=== PATIENT | male | born 1965 | race Caucasian/White ===

== ENCOUNTER 2018-09-14 06:00 | Observation (INO) | payer BC ==
[2018-09-14] MEDS ORDERED: NA CHLORIDE 0.9% 1,000 ML ONE (06:30)
[2018-09-14] MEDS ORDERED: ASPIRIN EC 81 MG TAB PO ONE (06:30)
--- NOTE | 2018-09-14 07:05 | EDPHYS ---
Physician Documentation [facility] Name: Noe Carvajal Jr Age: 52 yrs Sex: Male : 1965 Arrival Date: 09/14/2018 Time: 06:00 Bed 4 Private MD: ED Physician Neil Robert HPI: 09/14 06:56 This 52 yrs old Male presents to ER via Wheelchair with complaints of Chest toño Pain. 06:56 The patient or guardian reports chest pain that is located primarily in the substernal toño area. Onset: just prior to arrival, this morning. The pain radiates to Associated signs and symptoms: The patient has no apparent associated signs or symptoms. The chest pain is described as a pressure. Duration: The patient or guardian reports a single episode, that is still ongoing. Modifying factors: The symptoms are alleviated by nothing. the symptoms are aggravated by nothing. Severity of pain: At its worst the pain was moderate in the emergency department the pain is unchanged. The patient has not experienced similar symptoms in the past. Historical: - Allergies: 06:15 No Known Allergies; rr5 - Home Meds: 06:15 blood pressure meds (unaware of name) [Active]; Diltiazem Oral [Active]; olmazart rr5 [Active]; - PMHx: 06:15 Hypertension; Kidney stones; rr5 - PSHx: 06:15 Knee surgery; rr5 - Immunization history:: Adult Immunizations unknown. - Social history:: Smoking status: Patient/guardian denies using tobacco. - Ebola Screening: : Patient negative for fever greater than or equal to 101.5 degrees Fahrenheit, and additional compatible Ebola Virus Disease symptoms Patient denies exposure to infectious person Patient denies travel to an Ebola-affected area in the 21 days before illness onset No symptoms or risks identified at this time. - Family history:: not pertinent. ROS: 06:56 Constitutional: Negative for fever, chills, and weight loss, Eyes: Negative for injury, toño pain, redness, and discharge, ENT: Negative for injury, pain, and discharge, Neck: Negative for injury, pain, and swelling, Respiratory: Negative for shortness of breath, cough, wheezing, and pleuritic chest pain, Abdomen/GI: Negative for abdominal pain, nausea, vomiting, diarrhea, and constipation, Back: Negative for injury and pain, : Negative for injury, bleeding, discharge, and swelling, MS/Extremity: Negative for injury and deformity, Skin: Negative for injury, rash, and discoloration, Neuro: Negative for headache, weakness, numbness, tingling, and seizure, Psych: Negative for depression, anxiety, suicide ideation, homicidal ideation, and hallucinations, Allergy/Immunology: Negative for hives, rash, and allergies, Endocrine: Negative for neck swelling, polydipsia, polyuria, polyphagia, and marked weight changes, Hematologic/Lymphatic: Negative for swollen nodes, abnormal bleeding, and unusual bruising. 06:56 Cardiovascular: Positive for chest pain, of the chest. Exam: 06:56 Constitutional: This is a well developed, well nourished patient who is awake, alert, toño and in no acute distress. Head/Face: Normocephalic, atraumatic. Eyes: Pupils equal round and reactive to light, extra-ocular motions intact. Lids and lashes normal. Conjunctiva and sclera are non-icteric and not injected. Cornea within normal limits. Periorbital areas with no swelling, redness, or edema. ENT: Nares patent. No nasal discharge, no septal abnormalities noted. Tympanic membranes are normal and external auditory canals are clear. Oropharynx with no redness, swelling, or masses, exudates, or evidence of obstruction, uvula midline. Mucous membranes moist. Neck: Trachea midline, no thyromegaly or masses palpated, and no cervical lymphadenopathy. Supple, full range of motion without nuchal rigidity, or vertebral point tenderness. No Meningismus. Chest/axilla: Normal chest wall appearance and motion. Nontender with no deformity. No lesions are appreciated. Cardiovascular: Regular rate and rhythm with a normal S1 and S2. No gallops, murmurs, or rubs. Normal PMI, no JVD. No pulse deficits. Respiratory: Lungs have equal breath sounds bilaterally, clear to auscultation and percussion. No rales, rhonchi or wheezes noted. No increased work of breathing, no retractions or nasal flaring. Abdomen/GI: Soft, non-tender, with normal bowel sounds. No distension or tympany. No guarding or rebound. No evidence of tenderness throughout. Back: No spinal tenderness. No costovertebral tenderness. Full range of motion. Male : Normal genitalia with no discharge or lesions. Skin: Warm, dry with normal turgor. Normal color with no rashes, no lesions, and no evidence of cellulitis. MS/ Extremity: Pulses equal, no cyanosis. Neurovascular intact. Full, normal range of motion. Neuro: Awake and alert, GCS 15, oriented to person, place, time, and situation. Cranial nerves II-XII grossly intact. Motor strength 5/5 in all extremities. Sensory grossly intact. Cerebellar exam normal. Normal gait. Psych: Awake, alert, with orientation to person, place and time. Behavior, mood, and affect are within normal limits. 06:56 Musculoskeletal/extremity: Extremities: all appear grossly normal, with no appreciated pain with palpation, ROM: no acute changes, Circulation is intact in all extremities. Sensation intact. Compartment Syndrome exam of affected extremity: is normal. DVT Exam: No signs of deep vein thrombosis. no pain, no swelling, no tenderness, negative Homans' sign noted on exam, no appreciated bluish discoloration, no erythema, no increased warmth. Vital Signs: 06:06 BP 162 / 111; Pulse 85; Resp 18; Temp 98; Pulse Ox 100% on R/A; Weight 113.4 kg; Height rr5 5 ft. 6 in. (167.64 cm); 07:00 BP 162 / 85; Pulse 63; Resp 18; Pulse Ox 98% on R/A; Pain 2/10; hj 08:02 BP 164 / 85; Pulse 75; Resp 18; Pulse Ox 100% on R/A; hj 08:44 BP 136 / 95; Pulse 56; Resp 18; Pulse Ox 100% on R/A; hj 06:06 Body Mass Index 40.35 (113.40 kg, 167.64 cm) rr5 MDM: 06:02 Patient medically screened. [facility] 07:01 Data reviewed: vital signs, nurses notes, lab test result(s), EKG, radiologic studies, [facility] plain films. 09/14 06:03 Order name: Basic Metabolic Panel [facility] 09/14 06:03 Order name: CBC with Diff [facility] 09/14 06:03 Order name: LFT's [facility] 09/14 06:03 Order name: Magnesium [facility] 09/14 06:03 Order name: NT PRO-BNP [facility] 09/14 06:03 Order name: PT-INR [facility] 09/14 06:03 Order name: Troponin (emerg Dept Use Only) [facility] 09/14 06:03 Order name: Lipase [facility] 09/14 07:15 Order name: CBC with Automated Diff; Complete Time: 07:28 EDMS 09/14 07:16 Order name: Protime (+INR); Complete Time: 07:28 EDMS 09/14 07:26 Order name: Basic Metabolic Panel; Complete Time: 07:28 EDMS 09/14 07:26 Order name: Liver (Hepatic) Function; Complete Time: 07:28 EDMS 09/14 07:26 Order name: NT PRO-BNP; Complete Time: 07:28 EDMS 09/14 07:26 Order name: Magnesium; Complete Time: 07:28 EDMS 09/14 06:03 Order name: XRAY Chest (1 view) [facility] 09/14 06:03 Order name: EKG; Complete Time: 10:32 [facility] 09/14 06:03 Order name: Cardiac monitoring; Complete Time: 06:20 [facility] 09/14 06:03 Order name: EKG - Nurse/Tech; Complete Time: 06:20 [facility] 09/14 06:03 Order name: IV Saline Lock; Complete Time: 06:20 [facility] 09/14 06:03 Order name: Labs collected and sent; Complete Time: 06:20 [facility] 09/14 07:26 Order name: Lipase; Complete Time: 07:28 EDNJ 09/14 07:29 Order name: Lipid Profile [facility] 09/14 08:16 Order name: Troponin I; Complete Time: 08:22 EDMS 09/14 08:35 Order name: RAD EDNJ 09/14 06:03 Order name: O2 Per Protocol; Complete Time: 06:20 [facility] 09/14 06:03 Order name: O2 Sat Monitoring; Complete Time: 06:20 [facility] Administered Medications: 06:30 Drug: Aspirin 162 mg Route: PO; rr5 07:14 Follow up: Response: No adverse reaction rr5 06:30 Drug: NS 0.9% 1000 ml Route: IV; Rate: 125 ml/hr; Site: right forearm; rr5 08:55 Follow up: IV Status: Infusion continued upon admission hj 07:00 Drug: Lovenox 1 mg/kg Route: Sub-Q; Site: right lower abdomen; rr5 07:22 Follow up: Response: No adverse reaction 07:11 Drug: Lopressor (metoprolol TARTRATE) 50 mg Route: PO; rr5 07:22 Follow up: Response: No adverse reaction hj 07:12 Drug: Pepcid 20 mg Route: IVP; Site: right forearm; rr5 07:21 Follow up: Response: No adverse reaction hj 07:14 Drug: PlaVIX 300 mg Route: PO; hj 07:31 Follow up: Response: No adverse reaction hj Disposition: 09/14/18 07:04 Hospitalization ordered by Kit Jenkins for Observation. Preliminary diagnosis are Chest pain, unspecified, Essential (primary) hypertension. - Bed requested for Telemetry/MedSurg (Inpatient). - Status is Observation. hj - Condition is Fair. - Problem is new. - Symptoms have improved. UTI on Admission? No Signatures: Dispatcher [employer] EDMS Ladan Marinelli Corey, MD MD cha Joaquin, Henry RN RN Sam Aranda RN RN rr5 Corrections: (The following items were deleted from the chart) 08:28 07:04 Hospitalization Ordered by Kit Jenkins MD for Observation. Preliminary diagnosis bd is Chest pain, unspecified; Essential (primary) hypertension. Bed requested for Telemetry/MedSurg (Inpatient). Status is Observation. Condition is Fair. Problem is new. Symptoms have improved. UTI on Admission? No. toño 08:54 08:28 09/14/2018 07:04 Hospitalization Ordered by Kit Jenkins MD for Observation. hj Preliminary diagnosis is Chest pain, unspecified; Essential (primary) hypertension. Bed requested for Telemetry/MedSurg (Inpatient). Status is Observation. Condition is Fair. Problem is new. Symptoms have improved. UTI on Admission? No. bd
--- NOTE | 2018-09-14 07:05 | ER ---
Nurse's Notes [facility] Name: Noe Carvajal Jr Age: 52 yrs Sex: Male : 1965 Arrival Date: 09/14/2018 Time: 06:00 Bed 4 Private MD: Diagnosis: Chest pain, unspecified;Essential (primary) hypertension Presentation: 09/14 06:07 Presenting complaint: Patient states: complaining of chest pain radiates to left jaw rr5 started last night, it gets worst this morning. Transition of care: patient was not received from another setting of care. Onset of symptoms was September 13, 2018. Risk Assessment: Do you want to hurt yourself or someone else? Patient reports no desire to harm self or others. Initial Sepsis Screen: Does the patient meet any 2 criteria? No. Patient's initial sepsis screen is negative. Does the patient have a suspected source of infection? No. Patient's initial sepsis screen is negative. Note as verbalized by the patient he feels like something kick him to his central chest area. Care prior to arrival: None. 06:07 Method Of Arrival: Wheelchair rr5 06:07 Acuity: ATA 3 rr5 Triage Assessment: 06:05 General: Appears uncomfortable, Behavior is cooperative. Pain: Complains of pain in rr5 mid-sternal area Pain radiates to left jaw Pain Quality of pain is described as aching, heavy, Pain began last night Is intermittent, Aggravated by increased activity. EENT: No signs and/or symptoms were reported regarding the EENT system. Neuro: Level of Consciousness is awake, alert, obeys commands, Oriented to person, place, time. Cardiovascular: Reports chest pain, Capillary refill < 3 seconds Patient's skin is warm and dry. Chest pain quality is heaviness, pressure, radiates to left jaw(s) began last night episodes are intermittent. Respiratory: Airway is patent. GI: No signs and/or symptoms were reported involving the gastrointestinal system. : No signs and/or symptoms were reported regarding the genitourinary system. Derm: No signs and/or symptoms reported regarding the dermatologic system. Musculoskeletal: Capillary refill < 3 seconds, Range of motion: intact in all extremities. Historical: - Allergies: 06:15 No Known Allergies; rr5 - Home Meds: 06:15 blood pressure meds (unaware of name) [Active]; Diltiazem Oral [Active]; olmazart rr5 [Active]; - PMHx: 06:15 Hypertension; Kidney stones; rr5 - PSHx: 06:15 Knee surgery; rr5 - Immunization history:: Adult Immunizations unknown. - Social history:: Smoking status: Patient/guardian denies using tobacco. - Ebola Screening: : Patient negative for fever greater than or equal to 101.5 degrees Fahrenheit, and additional compatible Ebola Virus Disease symptoms Patient denies exposure to infectious person Patient denies travel to an Ebola-affected area in the 21 days before illness onset No symptoms or risks identified at this time. - Family history:: not pertinent. Screenin:06 Abuse screen: Denies threats or abuse. Denies injuries from another. Nutritional rr5 screening: No deficits noted. Tuberculosis screening: No symptoms or risk factors identified. Fall Risk IV access (20 points). Total Torres Fall Scale indicates No Risk (0-24 pts). Assessment: 06:32 General: Appears uncomfortable, Behavior is calm, cooperative. Pain: Complains of pain rr5 in left jaw and chest Pain does not radiate. Pain radiates to left jaw Pain at worst was 8 out of 10 on a pain scale. Quality of pain is described as heavy, pressure, Pain began. 07:00 General: Appears in no apparent distress. uncomfortable, Behavior is calm, cooperative, hj appropriate for age. Pain: Complains of pain in chest and mid-sternal area Pain does not radiate. Pain currently is 4 out of 10 on a pain scale. Quality of pain is described as heavy, pressure, Pain began. Neuro: Level of Consciousness is awake, alert, obeys commands, Oriented to person, place, time, situation, Appropriate for age. Cardiovascular: Capillary refill < 3 seconds Patient's skin is warm and dry. Respiratory: Airway is patent Respiratory effort is even, unlabored, Respiratory pattern is regular, symmetrical. GI: No signs and/or symptoms were reported involving the gastrointestinal system. : No signs and/or symptoms were reported regarding the genitourinary system. EENT: No signs and/or symptoms were reported regarding the EENT system. Derm: No signs and/or symptoms reported regarding the dermatologic system. Musculoskeletal: No signs and/or symptoms reported regarding the musculoskeletal system. 07:40 Reassessment: Patient and/or family updated on plan of care and expected duration. Pain hj level reassessed. Patient is alert, oriented x 3, equal unlabored respirations, skin warm/dry/pink. informed about admit; awaiting room placement;. Vital Signs: 06:06 BP 162 / 111; Pulse 85; Resp 18; Temp 98; Pulse Ox 100% on R/A; Weight 113.4 kg; Height rr5 5 ft. 6 in. (167.64 cm); 07:00 BP 162 / 85; Pulse 63; Resp 18; Pulse Ox 98% on R/A; Pain 2/10; hj 08:02 BP 164 / 85; Pulse 75; Resp 18; Pulse Ox 100% on R/A; hj 08:44 BP 136 / 95; Pulse 56; Resp 18; Pulse Ox 100% on R/A; hj 06:06 Body Mass Index 40.35 (113.40 kg, 167.64 cm) rr5 ED Course: 06:00 Patient arrived in ED. al2 06:02 Neil Robert MD is Attending Physician. toño 06:07 Sam Aranda RN is Primary Nurse. rr5 06:10 Triage completed. rr5 06:15 EKG done, by ED staff, reviewed by Neil Robert MD. aa1 06:19 Arm band placed on. rr5 06:20 engine monitor on. Pulse ox on. NIBP on. rr5 06:20 Patient has correct armband on for positive identification. Bed in low position. Call rr5 light in reach. 06:20 Inserted saline lock: 20 gauge in right antecubital area, using aseptic technique. aa1 Blood collected. 07:00 Report received from Sam MCDANIEL. hj 07:02 Patient maintains SpO2 saturation greater than 95% on room air. rr5 07:03 Kit Jenkins MD is Hospitalizing Provider. toño 07:15 X-ray completed. Portable x-ray completed in exam room. Patient tolerated procedure ag1 well. 07:15 Report given to kurt MCDANIEL. rr5 08:53 No provider procedures requiring assistance completed. Patient admitted, IV remains in hj place. intact. Administered Medications: 06:30 Drug: Aspirin 162 mg Route: PO; rr5 07:14 Follow up: Response: No adverse reaction rr5 06:30 Drug: NS 0.9% 1000 ml Route: IV; Rate: 125 ml/hr; Site: right forearm; rr5 08:55 Follow up: IV Status: Infusion continued upon admission hj 07:00 Drug: Lovenox 1 mg/kg Route: Sub-Q; Site: right lower abdomen; rr5 07:22 Follow up: Response: No adverse reaction hj 07:11 Drug: Lopressor (metoprolol TARTRATE) 50 mg Route: PO; rr5 07:22 Follow up: Response: No adverse reaction hj 07:12 Drug: Pepcid 20 mg Route: IVP; Site: right forearm; rr5 07:21 Follow up: Response: No adverse reaction hj 07:14 Drug: PlaVIX 300 mg Route: PO; hj 07:31 Follow up: Response: No adverse reaction Outcome: 07:04 Decision to Hospitalize by Provider. toño 08:54 Admitted to Tele accompanied by tech, via wheelchair, room 430, with chart, Report hj called to JONAS Mcadams 08:54 Condition: stable 08:54 Instructed on the need for admit, Demonstrated understanding of instructions. 08:54 Patient left the ED. Signatures: Bri Siegel, RN RN aa1 Neil Robert MD MD cha Gallaway, Ashley ag1 Kurt Ramos RN RN hj Love, Angelica al2 Roque, Raymond, RN RN rr5
[2018-09-14] MEDS ORDERED: MORPHINE 4 MG/ML SYR IV PRN (07:08)
[2018-09-14] MEDS ORDERED: ONDANSETRON 4 MG/2 ML VIAL IV PRN (07:08)
[2018-09-14] MEDS ORDERED: ACETAMINOPHEN 325 MG TABLET PO PRN (07:08)
[2018-09-14 07:14] LABS: Absolute Lymphocytes (CBC) 1.5 K/uL (0.7-4.9); Absolute Monocytes 0.7 K/uL (0.1-1.3); Absolute Neutrophil 5.2 K/uL (1.8-8.0); Basophils % 0.6 % (0-1.3); Eosinophils % 0.6 % (0-4.4); Hematocrit 50.2 % (39.6-49.0); Lymphocytes % 19.9 % (15.3-44.8); MCH 28.9 pg (27.0-35.0); MCV 86.3 fL (80-100); MPV 8.2 fL (7.6-11.3); Monocytes % 9.6 % (3.3-12.3); RBC Red Blood Cell Count 5.82 M/uL (4.33-5.43)
[2018-09-14] MEDS ORDERED: ENOXAPARIN 100 MG/ML SYR SQ ONE (07:15)
[2018-09-14] MEDS ORDERED: METOPROLOL TAR 50 MG TAB ONE (07:15)
[2018-09-14 07:16] LABS: Protime INR 1.01
[2018-09-14] MEDS ORDERED: FAMOTIDINE 20 MG/2 ML VIAL IV ONE (07:16)
[2018-09-14 07:26] LABS: Albumin 3.8 g/dL (3.4-5.0); Bilirubin Direct 0.2 mg/dL (0-0.2); Bilirubin Total 0.5 mg/dL (0.2-1.0); Magnesium 2.2 mg/dL (1.8-2.4); Potassium 3.7 mmol/L (3.5-5.1); Protein, Total 7.5 g/dL (6.4-8.2)
--- NOTE | 2018-09-14 08:35 | RAD REPORT ---
EXAM DESCRIPTION: Elliot Single View09/14/2018 7:22 am CLINICAL HISTORY: Chest pain COMPARISON: 2016 FINDINGS: The lungs appear clear of acute infiltrate. The heart is normal size IMPRESSION: No acute abnormalities displayed
[2018-09-14] MEDS: CLOPIDOGREL 75 MG TABLET PO SCH (09:00)
[2018-09-14] MEDS: METOPROLOL TAR 50 MG TAB PO SCH ×2 (09:00→16:46)
[2018-09-14] MEDS: ASPIRIN EC 81 MG TAB PO SCH (09:00)
--- NOTE | 2018-09-14 14:24 | CON ---
CARDIOLOGY CONSULT History Of Present Illness: Mr. Carvajal is 52. He started having chest pain a few days ago, this morn ing it got worse, so he came to the emergency room. The pain is central chest, feels like somebody i s sitting on him, but then it suddenly radiates up to the neck and that has what actually prompted ventura m to come into the hospital. The patient has never had myocardial infarction or stroke. Eleven year s ago a stress test was normal. He uses no tobacco, does not have diabetes. No illegal drugs. Rare alcohol. Since he has been in the hospital, his EKG is unremarkable. His cardiac enzymes are maude l. He has normal hemoglobin and hematocrit. His creatinine is 1.2, blood sugar 104. Physical Examination: General: He is obese, alert, oriented, pleasant. He is a little bit emotionally distraught. He is crying some. Lungs: Clear. Heart: S4 gallop. Abdomen: Soft. Extremities: Normal distal pulses. No cyanosis, clubbing, or edema. Impression: The patient may have unstable angina. There are not any EKG or laboratory criteria that really tip the scale, but I have recommended doing a heart cath for diagnostic purposes. I think, enedina perry need to know whether he has coronary heart disease or not. He has agreed to do a cardiac cath. Un fortunately, he got Lovenox just 2 hours ago, so we will have to try and delay it to later this after noon or early tomorrow morning. The patient seems to understand the cardiac cath procedure, its potential benefits, indications, risks, and agrees to proceed. CADE Voice ID: [id number] Report ID: [id number]
--- NOTE | 2018-09-14 15:23 | EKG ---
Test Date: 2018-09-14 Test Time: 07:09:37 Machine Tool Builder: ANNIKA MEASUREMENT RESULTS: Intervals: Rate: 70 IA: 158 QRSD: 98 QT: 384 QTc: 414 [place]: P: 19 IA: 158 QRS: 66 T: 51 INTERPRETIVE STATEMENTS: Normal sinus rhythm Normal ECG Compared to ECG 08/31/2010 07:05:42 Sinus bradycardia no longer present Electronically Signed On 09-14-18 15:22:12 SPIDER ASSEMBLER by Nathaniel Avila
--- NOTE | 2018-09-14 15:55 | ECHO ---
HEIGHT: 5 ft 6 in WEIGHT: 246 lb 12.8 oz DATE OF STUDY: 09/14/[address]: Neil Robert MD 2-DIMENSIONAL: YES M.MODE: YES DOPPLER: YES COLOR FLOW: YES TDS: NO PORTABLE: NO DEFINITY: NO BUBBLE STUDY: NO DIAGNOSIS: CHEST PAIN CARDIAC HISTORY: CATHERIZATION: NO SURGERY: NO PROSTHETIC VALVE: NO PACEMAKER: NO MEASUREMENTS (cm) DIASTOLIC (NORMALS) SYSTOLIC (NORMALS) IVSd 0.9 (0.6-1.2) LA Diam 3.6 (1.9-4.0) LVEF 58% LVIDd 3.9 (3.5-5.7) LVIDs 2.7 (2.0-3.5) %FS 30% LVPWd 1.0 (0.6-1.2) Ao Diam 3.0 (2.0-3.7) 2 DIMENSIONAL ASSESSMENT: RIGHT ATRIUM: NORMAL LEFT ATRIUM: NORMAL RIGHT VENTRICLE: NORMAL LEFT VENTRICLE: NORMAL TRICUSPID VALVE: NORMAL MITRAL VALVE: NORMAL PULMONIC VALVE: NORMAL AORTIC VALVE: NORMAL PERICARDIAL EFFUSION: NONE AORTIC ROOT: NORMAL LEFT VENTRICULAR WALL MOTION: NORMAL. DOPPLER/COLOR FLOW: NORMAL. COMMENTS: NORMAL 2D ECHO WITH DOPPLER. TECHNOLOGIST: ONEIL PERRY
[2018-09-14] MEDS ORDERED: ENOXAPARIN 100 MG/ML SYR SQ SCH (18:00)
[2018-09-14] MEDS: FAMOTIDINE 20 MG/2 ML VIAL IV SCH (20:31)
--- NOTE | 2018-09-15 02:46 | HP ---
Date of Admission: 09/14/2018 Chief Complaint: Chest pain. History Of Present Illness: A 52-year-old male who was brought to the emergency room because of prec ordial chest pain described as a pressure-like sensation. [facility] There was no evidence of myocardial injury. The patient is admitted for observation. Past Medical History: Positive for hypertension and history of kidney stones. Past Surgical History: Positive for knee surgery. Family History: Positive for coronary artery disease. Review of Systems: No fever, chills, or rigors. Physical Examination: General: Revealed a 52-year-old male, alert and oriented. HEENT: Negative. Neck: Supple. JVD negative. Chest: Clear. Heart: Regular. Abdomen: Soft. Extremities: No edema. Neurological: No deficits. Laboratory Data: White count normal. Chem profile; BUN 22. Otherwise, negative. Troponin negative . Assessment: 1.Chest pain. 2.Hypertension. Plan: The patient is scheduled for cardiac catheterization in a.m. Pending that, he will be continu ed on the current management. EZRA/MAAME Voice ID: [id number]
[2018-09-15 04:19] LABS: Absolute Lymphocytes (CBC) 1.9 K/uL (0.7-4.9); Absolute Monocytes 0.9 K/uL (0.1-1.3); Absolute Neutrophil 4.7 K/uL (1.8-8.0); Basophils % 0.8 % (0-1.3); Hematocrit 46.6 % (39.6-49.0); Lymphocytes % 24.6 % (15.3-44.8); MCH 29.3 pg (27.0-35.0); MCV 87.5 fL (80-100); MPV 7.9 fL (7.6-11.3); RBC Red Blood Cell Count 5.32 M/uL (4.33-5.43)
[2018-09-15 04:27] LABS: Potassium 4.2 mmol/L (3.5-5.1)
--- NOTE | 2018-09-15 06:50 | RAD REPORT ---
EXAM DESCRIPTION: RAD - Chest Single View - 09/15/2018 6:45 am CLINICAL HISTORY: Chest pain COMPARISON: September 14 TECHNIQUE: AP portable chest image was obtained 0625 hours . FINDINGS: Lung volumes are low. Lung honeycutt are clear of any new or progressive finding. No failure or volume overload. Heart and vasculature are normal. No measurable pleural effusion and no pneumotho rax. No acute bony abnormality seen. No acute aortic findings suspected. IMPRESSION: No acute cardiopulmonary process. No significant interval change.
[2018-09-15] MEDS ORDERED: INFLUENZA VACCINE (for 3y+) 0.5 ML DOSE IMVAC ONE (08:00)
[2018-09-15] MEDS: FAMOTIDINE 20 MG/2 ML VIAL IV SCH (08:38)
[2018-09-15] MEDS: ASPIRIN EC 81 MG TAB PO SCH (09:00)
[2018-09-15] MEDS: CLOPIDOGREL 75 MG TABLET PO SCH (09:00)
[2018-09-15] MEDS ORDERED: FENTANYL CITR 100 MCG/2 ML ONE (10:47)
[2018-09-15] MEDS ORDERED: MIDAZOLAM HCL 2 MG/2 ML INJ ONE ×2 (10:47→11:05)
[2018-09-15] MEDS ORDERED: HEPA 1000U/500MLS 1,000 UNIT/500 ML BAG IV ONE (10:47)
[2018-09-15] MEDS ORDERED: LIDOCAINE 1% MPF 30 ML VIAL ONE (10:48)
[2018-09-15] MEDS ORDERED: NA CHLORIDE 0.9% 0 ML ONE (10:51)
[2018-09-15] MEDS ORDERED: NA CHLORIDE 0.9% 500 ML ONE (11:07)
--- NOTE | 2018-09-15 12:19 | EKG ---
Test Date: 2018-09-15 Test Time: 08:04:07 Armhole Raiser Lockstitch: JT MEASUREMENT RESULTS: Intervals: Rate: 57 ME: 168 QRSD: 104 QT: 402 QTc: 391 [place]: P: 62 ME: 168 QRS: 81 T: 62 INTERPRETIVE STATEMENTS: Sinus bradycardia Otherwise normal ECG Compared to ECG 09/14/2018 07:09:37 Sinus rhythm no longer present Electronically Signed On 09-15-18 12:17:50 HEAVY EQUIPMENT SALES ASSOCIATE by Len Hickey
[2018-09-15] MEDS: METOPROLOL TAR 50 MG TAB PO SCH (13:55)
[2018-09-15] MEDS ORDERED: NITROGLYCERIN 0.4 MG/TAB SL PRN (14:00)
[2018-09-15] MEDS ORDERED: ACETAMINOPHEN 325 MG TABLET PO PRN (14:00)
[2018-09-15] MEDS ORDERED: NA CHLORIDE 0.9% 1,000 ML IV SCH (14:00)
--- NOTE | 2018-09-16 12:11 | OP ---
Surgeon: Len Hickey MD Retail Sales Merchandiser: Gina Griffith. Procedure: Left heart catheterization with selective coronary arteriogram. Indication: Unstable angina. Positive troponin. Procedure In Detail: The patient was brought in as an outpatient to the laborer plumbing. He was prepped an d draped in the usual sterile fashion, given 4 mg of Versed for IV sedation. A 6-Vietnamese sheath was i ntroduced in the right common femoral artery. Lloyd catheters were used to do the coronary arterio gram. He was found to have a very dominant right system. He had a dual ostium for the circumflex an d the LAD. The circumflex appeared to have some [id number] plaquing. The LAD had some mild-to -moderate plaquing, but no focal stenosis. Final Diagnosis: Minimal coronary artery disease. Plan: Medical therapy. Complications: None. Estimated Blood Loss: 5 cc. Anesthesia: Total conscious sedation was 30 minutes. Disposition: Angiography of the right common femoral artery was normal. Angio-Seal was used to clos e the case. The patient will be going home today. He will see me in the office in 2 weeks. We will stress diet, weight loss, low-fat, low-cholesterol diet as well as statin. Apparently, according to the family, he is very resistant to taking any medication. We will discuss the case as an outpatient. VY Voice ID: [id number] Report ID: [id number]
== END 2018-09-15 18:32 | disposition home or self-care (01) ==
LOC: ER 06:00 → ERHOLD 07:07 → 4TH 08:43
PROVIDERS: ADMIT Internal Medicine; ATTEND Internal Medicine
PROC: 4A023N7 Measurement of Cardiac Sampling and Pressure, Left Heart, Percutaneous Approach (ICD-10-PCS; principal; 2018-09-15)
PROC: B201YZZ Plain Radiography of Multiple Coronary Arteries using Other Contrast (ICD-10-PCS; 2018-09-15)
PROC: B205YZZ Plain Radiography of Left Heart using Other Contrast (ICD-10-PCS; 2018-09-15)
DX: I25.10 Atherosclerotic heart disease of native coronary artery without angina pectoris (principal); I10 Essential (primary) hypertension; Z87.442 Personal history of urinary calculi
CPT/HCPCS: 36415; 71045; 80048; 80061; 80076; 83690; 83735; 83880; 84484; 85025; 85610; 93005; 93306; 93454; 96361; 96372; 96374; 99285; C1760; C1893; G0378; J0583; J1650; J2250; J3010; J7030